=== PATIENT | male | born 1990 | race Caucasian/White ===

== ENCOUNTER 2016-08-29 10:45 | Inpatient (IN) | payer MEDICARE, MEDICAID ==
[2016-08-29 11:31] LABS: Hematocrit 42 % (42-52); Hemoglobin 14.4 g/dl (14.0-18.0); Mean Corpuscular HGB Conc 35 g/dl (31-36); Mean Corpuscular Hemoglobin 33 pg (27-31); Mean Corpuscular Volume 94 fL (80-94); Mean Platelet Volume 7 um3 (7.4-10.4); Red Blood Count 4.41 10^6/ul (4.0-5.4); Red Cell Distribution Width 13 % (10.5-15); White Blood Count 4.6 10^3/ul (3.5-10.8)
--- NOTE | 2016-08-29 11:46 | ED ---
Jamar Bustillos Alfonso, scribed for Daniel Vora MD on 08/29/16 at 1121 . Altered Mental Status - HPI Summary HPI Summary: This patient is a 25 year old male presenting with mother to [facility] for a "grand mal seizure" at 1000 today. He presented to [facility] for an outpatient EEG, and the seizure occurred in a [facility] elevator and lasted approximately 5 minutes. The clinical assessment team responded. Symptoms aggravated by nothing and alleviated by spontaneous resolution. He reports lightheadedness, metallic taste in mouth, and tunnel vision. He denies fevers and chills. Patient is taking medications for his seizures. PMHx of seizures. - History Of Current Complaint Chief Complaint: EDSeizure Stated Complaint: SEIZURE Time Seen by Provider: 08/29/16 10:50 Hx Obtained From: Patient, Family/Landscape Artist - Mother Onset/Duration: Resolved, Suddenly Timing: Constant, Lasting Minutes - 5 minutes Severity Initially: Moderate Severity Currently: Moderate Aggravating Factor(s): Nothing Alleviating Factor(s): Other - spontaneous resolution Associated Signs And Symptoms: Positive: Seizure - "grand mal seizure" at 1000 today.. Negative: Fever - Allergies/Home Medications Allergies/Adverse Reactions: Allergies Allergy/AdvReac Type Severity Reaction Status Date / Time Cortisone Allergy Severe Anaphylatic Verified 08/29/16 10:55 Shock Ibuprofen Allergy Severe Anaphylatic Verified 08/29/16 10:55 Shock PMH/Surg Hx/FS Hx/Imm Hx Opthamlomology History: Denies: Hx Legally Blind EENT History: Denies: Hx Deafness Infectious Disease History: No Infectious Disease History: Denies: Traveled Outside the [place] in Last 30 Days - Family History Known Family History: Positive: Seizure Disorder - Brother - Social History Alcohol Use: None Substance Use Type: Reports: None Smoking Status (MU): Never Smoked Tobacco Review of Systems Negative: Fever, Chills Neurological: Other - Positive seizure, lightheadedness, metallic taste in mouth , and tunnel vision. All Other Systems Reviewed And Are Negative: Yes Physical Exam Triage Information Reviewed: Yes Vital Signs On Initial Exam: Initial Vitals Temp Pulse Resp BP Pulse Ox 98.4 F 68 12 125/62 97 08/29/16 10:49 08/29/16 10:49 08/29/16 10:49 08/29/16 10:49 08/29/16 10:49 Vital Signs Reviewed: Yes Appearance: Positive: Well-Appearing, No Pain Distress Skin: Positive: Warm, Skin Color Reflects Adequate Perfusion, Dry Head/Face: Positive: Normal Head/Face Inspection Eyes: Positive: EOMI, AMANUEL ENT: Positive: Normal ENT inspection Neck: Positive: Supple, Nontender Respiratory/Lung Sounds: Positive: Clear to Auscultation, Breath Sounds Present Cardiovascular: Positive: RRR Abdomen Description: Positive: Nontender, Soft Bowel Sounds: Positive: Present Musculoskeletal: Positive: Normal, Strength/ROM Intact Neurological: Positive: Normal, Sensory/Motor Intact, Alert, Oriented to Person Place, Time, CN Intact II-III Psychiatric: Positive: Affect/Mood Appropriate Diagnostics - Vital Signs Vital Signs Temp Pulse Resp BP Pulse Ox 08/29/16 10:51 68 11 100 08/29/16 10:49 98.4 F 68 12 125/62 97 - Laboratory Lab Results: Lab Results 08/29/16 Range/Units 11:15 WBC 4.6 (3.5-10.8) 10^3/ul RBC 4.41 (4.0-5.4) 10^6/ul Hgb 14.4 (14.0-18.0) g/dl Hct 42 (42-52) % MCV 94 (80-94) fL MCH 33 H (27-31) pg MCHC 35 (31-36) g/dl RDW 13 (10.5-15) % Plt Count 131 L (150-450) 10^3/ul MPV 7 L (7.4-10.4) um3 Neut % (Auto) 71.5 (38-83) % Lymph % (Auto) 16.3 L (25-47) % Prairie % (Auto) 11.3 H (1-9) % Eos % (Auto) 0.5 (0-6) % Baso % (Auto) 0.4 (0-2) % Absolute Neuts (auto) 3.3 (1.5-7.7) 10^3/ul Absolute Lymphs (auto) 0.8 L (1.0-4.8) 10^3/ul Absolute Monos (auto) 0.5 (0-0.8) 10^3/ul Absolute Eos (auto) 0 (0-0.6) 10^3/ul Absolute Basos (auto) 0 (0-0.2) 10^3/ul Absolute Nucleated RBC 0 10^3/ul Nucleated RBC % 0 Result Diagrams: 08/29/16 11:15 Lab Statement: Any lab studies that have been ordered have been reviewed, and results considered in the medical decision making process. Altered Mental Statu Course/Dx - Course Course Of Treatment: NO CRITICAL CARE TIME. DISCUSSED WITH DR MARQUEZ, NEUROLOGY. ADMIT HOSPITALIST STABLE. - Diagnoses Discharge Diagnoses: Seizure - Provider Notifications Discussed Care Of Patient With: Remy Marquez Time Discussed With Above Provider: 10:48 Instructed by Provider To: Other - Consulted Dr. Marquez (neurologist) who was seeing the patient and recommends for admission. Consulted Dr. Rodríguez ( Hospitalist) at [facility] who agrees to admit. Discharge - Discharge Plan Condition: Stable Disposition: ADMITTED TO [facility] Referrals: Chad Oneil MD [Primary Care Provider] - The documentation as recorded by the Jamar hoover Alfonso accurately reflects the service I personally performed and the decisions made by me, Daniel Vora MD.
[2016-08-29 11:51] LABS: ALT 20 U/L (7-52); AST 15 U/L (13-39); Albumin 4.8 g/dL (3.2-5.2); Alkaline Phosphatase 79 U/L (34-104); Anion Gap 4 mmol/L (2-11); Blood Urea Nitrogen 11 mg/dL (6-24); C Reactive Protein 6.02 mg/L (< 5.00); CO2 Carbon Dioxide 24 mmol/L (22-32); Calcium 9.4 mg/dL (8.6-10.3); Chloride 97 mmol/L (101-111); Creatine Kinase 132 U/L (10-223); EGFR African American 117.1 (>60); Globulin 2.2 g/dL (2-4); Glucose 117 mg/dL (70-100); Lipase 18 U/L (11.0-82.0); Magnesium 1.9 mg/dL (1.9-2.7); Potassium 3.7 mmol/L (3.5-5.0); Sodium 125 mmol/L (133-145)
[2016-08-29] MEDS: NS 0.9% 1000 ML* 1,000 ML IV SCH ×3 (12:01→20:20)
[2016-08-29] MEDS ORDERED: Ondansetron INJ* 2 MG/ML VIAL IV PRN (12:08)
[2016-08-29] MEDS ORDERED: Rizatriptan 10 MG TAB PO PRN (12:10)
[2016-08-29 13:16] LABS: Acetaminophen < 15 mcg/mL; Alcohol < 10 mg/dL (<10); Salicylate < 2.50 mg/dL (<30)
[2016-08-29 13:26] LABS: TSH (Thyroid Stimulating Horm) 2.39 mcIU/mL (0.34-5.60)
[2016-08-29] MEDS: Acetaminophen TAB* 325 MG PO PRN ×3 (14:03→23:52)
[2016-08-29 16:33] LABS: Urine Bacteria Absent (Absent); Urine Bilirubin Negative (Negative); Urine Glucose Negative (Negative); Urine Nitrite Negative (Negative)
[2016-08-29 16:41] LABS: Benzodiazepine Urine Screen None Detected (None Detect)
[2016-08-29] MEDS ORDERED: Lacosamide TAB* 100 MG TAB PO SCH ×2 (18:00)
[2016-08-29 18:41] LABS: BUN/Creatinine Ratio 9.9 (8-20); Calcium 8.9 mg/dL (8.6-10.3); EGFR African American 130.6 (>60); EGFR Non-African American 101.5 (>60)
[2016-08-29] MEDS: Famotidine TAB* 20 MG PO SCH (21:13)
[2016-08-29] MEDS: Tamsulosin CAP* 0.4 MG PO SCH (21:13)
[2016-08-29] MEDS ORDERED: SUMAtriptan TAB* 50 MG PO PRN (21:28)
[2016-08-29] MEDS: OXcarbazepine TAB(*) 300 MG PO SCH (21:51)
[2016-08-30 00:33] LABS: BUN/Creatinine Ratio 7.7 (8-20); Calcium 9.1 mg/dL (8.6-10.3); EGFR African American 130.6 (>60); EGFR Non-African American 101.5 (>60); Potassium 4.1 mmol/L (3.5-5.0)
--- NOTE | 2016-08-30 01:34 | HP ---
AMENDED REPORT NOW INCLUDES COSIGNER DESIGNATION - ESIGNED BEFORE ADJUSTMENT CC: Dr. Oneil, [place], [place]; Dr. Marquez; Dr. Kaplan * HISTORY AND PHYSICAL: DATE OF ADMISSION: 08/29/16 PRIMARY CARE PROVIDER: Dr. Oneil, Martina, [place] CHIEF COMPLAINT: Seizure. ATTENDING PHYSICIAN FROM HOSPITAL: Anne Chauhan DO* (report dictated by Charbel Castillo NP). HISTORY OF PRESENT ILLNESS: Mr. Ruiz is a 25-year-old male patient who has a history of mitochondrial disease, seizures, migraines, GERD. He has a mild intellectual developmental delay, BPH. He has history of OCD, anxiety and colitis. Comes into the ER today stating that recently over the last 10 days he has been having, in mother's words, spells or episodes where he has been confused, not acting right, he has some increased respirations. She was concerned and actually they went to [facility], was admitted there, had a spot EEG, there was no finding. He was instructed to follow up with Dr. Marquez. He was following up with Dr. Marquez today for long-term EEG monitoring; however, unfortunately, on his way down to the EEG lab, he had a grand mal seizure in the elevator. CAT was called and patient was brought to the ER. The patient remembers prior to this that he was feeling just a little dizzy and lightheaded and the next thing he knows he was being wheeled to the ER. The mother did witness this and she said it did appear to be one of the grand mal seizures and the last one prior to this was about a year ago. She is unsure how long it really lasted. The patient now is awake and he is alert. He denies having any headache. He denies having any chest pain, shortness of breath. There has been no recent illnesses with the exception that he did have some mark esophagitis recently, which he was treated for a couple of weeks ago. There has been no fevers, no vomiting, no diarrhea, no change in medications. He says he has been taking his meds right along like he is supposed to. He came in to the ER, was evaluated, there was concern because of the seizures and the hospitalist service is asked to evaluate for admission. PAST MEDICAL HISTORY: 1. Seizures. 2. Migraines. 3. GERD. 4. BPH. 5. Mitochondrial disease. 6. Colitis. 7. Developmental delay, mild. 8. OCD. 9. Anxiety. PAST SURGICAL HISTORY: 1. He has had bilateral feet surgery. 2. Appendectomy. 3. Muscle biopsy. FAMILY HISTORY: His mother has history of an autoimmune disorder. Father's history is reviewed, noncontributory. SOCIAL HISTORY: He does not smoke, he does not drink. He lives with his parents. Surrogate decision maker is his mother. ALLERGIES: Include: 1. CORTISONE. 2. IBUPROFEN. HOME MEDICATIONS: According to the list they provided include, 1. Vimpat 100 mg in the morning, 200 mg at night. 2. Xanax 300 mg daily. 3. Vitamin D3 3000 units daily. 4. Maxalt 10 mg p.o. daily as needed for migraines. 5. Flomax 0.4 mg p.o. b.i.d. 6. Nexium 40 mg p.o. q.a.m. 7. Trileptal 600 mg p.o. b.i.d. REVIEW OF SYSTEMS: There is no documented fever. He denied having any significant weight change. There was no double vision. There is no ear discharge. He denied having any rhinorrhea. No sore throat, no thyroid enlargement. Denied having any chest pain. There was no orthopnea. No nocturnal dyspnea. There was no abdominal pain, no nausea, no vomiting. No dysuria, no frequency. There was a seizure, there was loss of consciousness. No pruritus and no skin ulcerations. Review of 14 systems completed, all others negative. PHYSICAL EXAMINATION GENERAL: At this time, Mr. Ruiz is a 25-year-old male patient. He is sitting in the ER stretcher. He appears well nourished, well developed. He does not appear to be in any acute distress. VITAL SIGNS: Reveals blood pressure 125/62, pulse 68, respirations 12, O2 sat 97% on room air, temperature 98.4. HEENT: Head atraumatic. Eyes: EOMs intact. Sclerae are anicteric. Throat: Oral mucosa appears moist. No oropharyngeal erythema. NECK: Supple. LUNGS: Clear to auscultation. No wheezes, rales or rhonchi. HEART: Sounds S1, S2. Regular rate and rhythm. No murmurs, rubs, or gallops. ABDOMEN: Soft, flat, nontender, bowel sounds present. EXTREMITIES: Pulses 2+ throughout. He is able to move all 4 extremities. He has 5/5 strength. NEUROLOGIC: The patient is awake. He is alert, he is oriented x3. His director of pulmonary unit are equal. Tongue is midline. Oqisuv-ki-dglp intact bilaterally. Heel-to- cristina intact bilaterally. He has no gross focal deficits. SKIN: Intact. DIAGNOSTIC STUDIES/LAB DATA: Labs reveal WBC of 4.6, RBC of 4.41, hemoglobin of 14.4, hematocrit of 43, platelet count of 131. Sodium 125, potassium 3.7, chloride of 97, bicarb 24, BUN of 11, creatinine of 1, glucose 117, lactic 1, calcium 9.4, mag 1.9. Total bili 0.5, AST 15, ALT 20, alk phos 79. CK 132, CK- MB 1.6, CRP of 6.02. Lipase 18, albumin 12.8. TSH pending. Toxicology pending. We did send off his Vimpat level and a Trileptal level, which will be pending. Old medical records were reviewed. ASSESSMENT AND PLAN: Mr. Ruiz is a 25-year-old male patient, coming into the ER today with complaints of seizure while going for long-term EEG monitoring. He will admitted under observation status for: 1. Seizure. At this point, I did touch base with Dr. Kaplan, who is on-call for Dr. Marquez. They did speak to each other. The plan is to go for long- term EEG monitoring in ICU. Depending on these findings, may consider further imaging. He had a recent CAT scan of the brain just done at [facility]. He was just there for a few days and with a spot EEG. I am going to get those records. I am not going to change his medications at this point. We are going to send off levels of his medications and we will continue to monitor him and I will order neuro checks every 4 hours. 2. Gastroesophageal reflux disease. Continue with meds prescribed. 3. Hyponatremia. The mother says that while in [place] his sodium did run between 125 to 127. I am going to send off urine osmolality, serum osmolality, TSH and cortisol to see if we can help figure out what is driving the hyponatremia. For the time being, we will monitor. He did get a liter in the ER here. I am going to repeat his sodium here about every 6 hours and we will monitor. 4. Migraines. Continue p.r.n. Maxalt. 5. Benign prostatic hyperplasia. Continue Flomax. 6. Mitochondrial disease. He follows with primary. 7. History of colitis. At this point, continue his current medical regimen. 8. Developmental delay. Continue with supportive care. 9. Obsessive-compulsive disorder, anxiety. Continue with supportive care and current meds. 10. DVT prophylaxis: I will place him on SCDs. 11. Fluids and nutrition: He can have a regular diet. 12. Code status: Full code. TIME SPENT: Time spent on admission was 60 minutes, greater than half the time spent [id number] with the patient obtaining history and physical; other half time spent going over the plan of care, with the patient, implementing plan of care. I discussed the plan of care with my attending, Dr. Chauhan, she is in agreement. CHARBEL CASTILLO, PHILL [id number]/[facility] #: [id number] GREGORY
--- NOTE | 2016-08-30 02:23 | CONS ---
CONSULTATION REPORT: DATE OF CONSULT: 08/29/2016. PATIENT OF: Dr. Vora and Dr. Marquez. HISTORY OF PRESENT ILLNESS: This is a 25-year-old man whom I follow for seizure disorder and mitochondrial disease, who is in my office today and I am sending for a prolonged EEG. In the elevator, he had a generalized tonic- clonic seizure lasting 5 minutes. I was called and I brought him, at that point he was talking but subdued, in his wheelchair and I brought him to the emergency room. He was able to stand and get to the gurney under his own power and I examined as well. He has a longstanding seizure disorder and is on Vimpat 100 mg twice a day and on Trileptal 600 twice a day as well as Klonopin one t.i.d. p.r.n. dizziness and anxiety. He also has migraine and is on rizatriptan and on Flomax 0.4 mg twice a day. He had been on Keppra in the past breakthrough seizures, and in the past, the seizures lasted as long as 8 minutes with tonic-clonic component. Most recently, I had seen him on 08/13/16 and he had doing well and had made no changes, but the within 4 or 5 days, he woke up with lightheaded, dizzy, off balance, feeling a metallic taste in his mouth, and this had persisted for an ongoing basis, so he was admitted to [place] from 08/24/16 through 08/27/16. I did not have those records, but he had a normal EEG and CT scan, no changes were made at that hospitalization. Of note, we had sent off blood work recently and his Trileptal level was 23 and his Vimpat level was 5. He has had extensive workup for mitochondrial disease at last in [place] and with different experts coming to different conclusions, but most recently, the doctor that feels that this mitochondrial genetic abnormalities represent a variant, is unlikely to be causing pathological findings. ALLERGIES: Include MOTRIN and HYDROCORTISONE. FAMILY HISTORY: He has a brother who has seizures and similar mitochondrial issues. SOCIAL HISTORY: He denies substance abuse. REVIEW OF SYSTEMS: Negative in all 14 spheres other than the HPI. PHYSICAL EXAM: Temperature 98.4, pulse 68, respirations 12, blood pressure 125/ 62. I examined him twice. He was alert and oriented throughout before and after the seizure. Cranial nerves II through XII are intact. He reached for objects, slightly clumsily before and after and this is his baseline. I tested his standing after seizure but did not walk him before the seizure, he had a narrow-based gait. He is moving all extremities with 5/5 strength before and after the seizure. Chest: Clear. Cardiovascular: Regular rate and rhythm. Abdomen: Soft. Positive bowel sounds. LABORATORY DATA: CBC had a white count of 4.6, hematocrit 42, platelets 131. Sodium was 125, rest of CMP was normal other than glucose of 117. C-reactive protein is 602. Tox screen was negative. IMPRESSION AND PLAN: I had discussed this with Dr. Darling the best EEG workup and we had been planning on getting a prolonged EEG today to get a sense of whether his ongoing symptoms of dizziness, metallic taste, imbalance, and tunnel vision were related to seizures. It is possible that if the case, it is possible that it could be secondary to medication side effect or lastly it is possible if this could be a stress or psychological issue even though he felt unsure of himself as walking appeared normal. In the setting of the recent seizure in the ER, makes more sense to admit him and he will be getting a video EEG monitoring. I have discussed this with Dr. Kaplan, who is picking up this case and will be following him this weekend as well as Dr. Darling. I would consider decreasing his anticonvulsant levels depending on the result of his more prolonged EEG, but this is a tricky situation. We could conceivably increase his Vimpat while decreasing his Trileptal, but Dr. Kaplan is provider relations manager and will be reacting to what happens over the next day or two. Thank you for sharing his case. [id number]/[facility] #: [id number] GREGORY
[2016-08-30] MEDS: NS 0.9% 1000 ML* 1,000 ML IV SCH (03:00)
[2016-08-30] MEDS ORDERED: LORazepam INJ* 2 MG/ML 1 ML VIAL IV PUSH PRN ×2 (04:19→09:28)
[2016-08-30 05:18] LABS: Hematocrit 40 % (42-52); Hemoglobin 13.6 g/dl (14.0-18.0); Mean Corpuscular HGB Conc 34 g/dl (31-36); Mean Corpuscular Hemoglobin 33 pg (27-31); Mean Corpuscular Volume 95 fL (80-94); Mean Platelet Volume 7 um3 (7.4-10.4); Red Blood Count 4.18 10^6/ul (4.0-5.4); Red Cell Distribution Width 13 % (10.5-15); White Blood Count 3.8 10^3/ul (3.5-10.8)
[2016-08-30 05:33] LABS: BUN/Creatinine Ratio 5.4 (8-20); Calcium 8.9 mg/dL (8.6-10.3); EGFR African American 128.9 (>60); EGFR Non-African American 100.2 (>60)
--- NOTE | 2016-08-30 08:33 | CONS ---
Neurology follow up note: SUMMARY: Patient signed out to me by Dr. Marquez. In summary, he is a 25-year- old right-handed male with history of epilepsy since age 4. He has been on several antiepileptic medications and his seizures have been refractory. His seizures, per history, are 2 types: Type A: dialeptic seizures that used to happen probably a few times a week when he was at school; however, since he has been off school, as per mother it is hard to say how often he is having them. Type B: Generalized tonic- clonic seizures. He typically did not have a history of auras with these and suddenly he loses consciousness followed by tonic posture with no clear lateralizing sign, and the proceeds to a generalized tonic-clonic seizure. The frequency of his seizures have not been very high with probably 1 seizure a year or less. Since about 10 days ago, the patient started to complain of episodes described as feeling dark in the vision , and also feeling of what he refers to has "hollow sounds" and metallic taste in his mouth. He had several of these episodes since about 10 days ago. He went to a local hospital during last weekend and was sent to [facility] and stayed there for a few days and was released. He saw Dr. Marquez today who wanted to send him for a few hours of EEG recording and while in the elevator he had one of his typical generalized tonic-clonic seizures. This seizure lasted about 4 to 5 minutes. He was then admitted to the hospital for video EEG monitoring. MEDICATIONS: Include at home: 1. Vimpat 100 mg b.i.d. He was on 100 mg in the morning and 200 mg at night about a few months ago, but that was decreased due to dizziness. 2. Zantac. 3. Vitamin D. 4. Oxcarbazepine 600 mg p.o. b.i.d. 5. Nexium. Per the records from Dr. Marquez's office his Vimpat level that was drawn about a week ago was 5 and Trileptal 23. ASSESSMENT AND PLAN: Patient is a 25-year-old right-handed male with history of medically refractory epilepsy, came with a breakthrough seizure and 10 days history of what seems to be episodes of aura described as feeling dark in the vision, and also feeling of what he refers to has "hollow sounds" and metallic taste in his mouth. He was placed on video EEG monitoring to characterize these episodes. For the time being no change in his medications will be made. Depending on the EEG findings, may adjust his antiepileptic medications in the subsequent days. [id number]/[facility] #: [id number] GREGORY
[2016-08-30] MEDS: OXcarbazepine TAB(*) 300 MG PO SCH ×2 (08:52→21:27)
[2016-08-30] MEDS: Omeprazole CAP* 20 MG PO SCH (08:52)
[2016-08-30] MEDS: Tamsulosin CAP* 0.4 MG PO SCH ×2 (08:52→21:29)
[2016-08-30] MEDS: Lacosamide TAB* 100 MG TAB PO SCH (08:52)
--- NOTE | 2016-08-30 09:19 | PN ---
Subjective Date of Service: 08/30/16 Interval History: Patient seen this morning. Had some episodes of light-headedness overnight which has been going on recently, wondering if this may related to seizure activity. Some neck pain since seizure. Mother at bedside as well this morning. Family History: Unchanged from Admission Social History: Unchanged from Admission Past Medical History: Unchanged from Admission Objective Active Medications: Acetaminophen (Tylenol Tab*) 650 mg PO Q4H PRN Famotidine (Pepcid Tab*) 40 mg PO BEDTIME CAYETANO Sodium Chloride (Ns 0.9% 1000 Ml*) 1,000 mls @ 150 mls/hr IV PER RATE CAYETANO Lacosamide (Vimpat Tab*) 100 mg PO QAM CAYETANO Lacosamide (Vimpat Tab*) 100 mg PO QPM CAYETANO Lorazepam (Ativan Inj*) 1 mg IV PUSH Q6H PRN Omeprazole (Prilosec Cap*) 20 mg PO DAILY@0730 CAYETANO Ondansetron HCl (Zofran Inj*) 4 mg IV Q6H PRN Oxcarbazepine (Trileptal Tab(*)) 600 mg PO BID CAYETANO Rizatriptan Benzoate (Maxalt-Philanthropy Officer (Nf)) 10 mg PO DAILY PRN Sumatriptan Succinate (Imitrex Tab*) 50 mg PO DAILY PRN Tamsulosin HCl (Flomax Cap*) 0.4 mg PO BID CAYETANO Vital Signs 08/29/16 08/29/16 08/29/16 12:30 13:00 13:35 Temperature 97.4 F Pulse Rate 78 72 72 Respiratory 14 12 18 Rate Blood Pressure 115/53 116/59 116/59 (mmHg) O2 Sat by Pulse 98 97 98 Oximetry 08/29/16 08/29/16 08/29/16 17:30 18:00 19:00 Temperature Pulse Rate 68 71 76 Respiratory 18 15 17 Rate Blood Pressure 121/63 (mmHg) O2 Sat by Pulse 99 100 98 Oximetry 08/30/16 08/30/16 08:00 09:00 Temperature Pulse Rate 61 76 Respiratory 11 15 Rate Blood Pressure 102/53 106/86 (mmHg) O2 Sat by Pulse 99 100 Oximetry Oxygen Devices in Use Now: None Appearance: Young, M, laying in bed in NAD Eyes: No Scleral Icterus Ears/Nose/Mouth/Throat: Mucous Membranes Moist Neck: NL Appearance and Movements; NL JVP Respiratory: Symmetrical Chest Expansion and Respiratory Effort, Clear to Auscultation Cardiovascular: NL Sounds; No Murmurs; No JVD, RRR Abdominal: NL Sounds; No Tenderness; No Distention Lymphatic: No Cervical Adenopathy Extremities: No Edema Skin: No Rash or Ulcers Neurological: Alert and Oriented x 3 Result Diagrams: 08/30/16 05:11 08/30/16 05:11 Microbiology and Other Data: Microbiology 08/29/16 14:00 Nasal Screen MRSA (PCR)(RAMSES) - Final Nasal Mrsa Negative Assess/Plan/Problems-Billing Assessment: Seizure in a 25 yo M with hx of mitochondrial disease, migraines, GERD, developmental delay, OCD/anxiety - Patient Problems (1) Seizure Current Visit: Yes Comment: Appreciate Neurology assistance. Currently on cEEG. For now, continuing home dose of Vimpat 100 mg BID and Trileptal 600 mg BID. Will touch base with Neuro regarding EEG findings. (2) Hyponatremia Current Visit: Yes Comment: Na improving with IVF although initial Peter was elevated, may be some component of SIADH as well. Will recheck Peter now. Stop IVF as he is eating and drinking. (3) GERD (gastroesophageal reflux disease) Current Visit: Yes Comment: Continue H2 thelma (4) BPH (benign prostatic hyperplasia) Current Visit: Yes Comment: Continue flomax (5) DVT prophylaxis Current Visit: Yes Comment: SCDs
--- NOTE | 2016-08-30 11:43 | EEG ---
SENIOR CARE VIDEO/EEG MONITORING - Monitoring Monitoring Start Date: 08/29/16 - Starting at 14:30 to 08/30/16 at 07:58 EEG Clinical Indication: 25-year-old male with history of localization related epilepsy, intractable, was under fair control of his seizures on Vimpat and Oxcarbazepine until about a week ago. Since then, he is having episodes described as feeling lightheaded, sometimes feeling a metallic taste in the mouth, followed by "hearing hollow" sounds, that may last for a couple of minutes. The patient had a generalized tonic clonic seizure on 08/29/16 while he was coming to the hospital for another EEG recording. He was started on video-EEG monitoring for characterization of these events. Introduction: INTRODUCTION: The EEG was monitored from 21 scalp electrodes. Nineteen electrodes consisted of the standard parasagittal, temporal and midline leads of the International 10 -20 system. In addition, special electrodes FT9 and FT10 were placed. EEG data were recorded on an [employer] system with simultaneous MPEG-4 digital video recording of patient behavior. EEG recording was in a monopolar montage with all electrodes referenced to FCz. Significant behavioral events were signaled by an event button, or putative electrical seizure events were detected by a computer program. All EEG data were reviewed in their entirety on a monitor with reconstruction of montages and adjustments of sensitivity and filtering. Simultaneous patient behavior was viewed on an adjacent monitor and correlated with the EEG. - Medications Active Medications: Acetaminophen (Tylenol Tab*) 650 mg PO Q4H PRN PRN Reason: FEVER/PAIN Last Admin: 08/29/16 23:52 Dose: 650 mg Famotidine (Pepcid Tab*) 40 mg PO BEDTIME [facility] PRN Reason: Protocol Last Admin: 08/29/16 21:13 Dose: 40 mg Lacosamide (Vimpat Tab*) 100 mg PO QAM [facility] Last Admin: 08/30/16 08:52 Dose: 100 mg Lacosamide (Vimpat Tab*) 100 mg PO QPM [facility] Last Admin: 08/29/16 18:34 Dose: 100 mg Lorazepam (Ativan Inj*) 1 mg IV PUSH Q6H PRN PRN Reason: ANXIETY Last Admin: 08/30/16 04:49 Dose: 1 mg Lorazepam (Ativan Inj*) 2 mg IV PUSH Q4H PRN PRN Reason: SEIZURES Omeprazole (Prilosec Cap*) 20 mg PO DAILY@0730 [facility] PRN Reason: Protocol Last Admin: 08/30/16 08:52 Dose: 20 mg Ondansetron HCl (Zofran Inj*) 4 mg IV Q6H PRN PRN Reason: NAUSEA Oxcarbazepine (Trileptal Tab(*)) 600 mg PO BID [facility] Last Admin: 08/30/16 08:52 Dose: 600 mg Rizatriptan Benzoate (Maxalt-Leaded Glass Installer (Nf)) 10 mg PO DAILY PRN PRN Reason: MIGRAINE HEADACHE Sumatriptan Succinate (Imitrex Tab*) 50 mg PO DAILY PRN PRN Reason: MIGRAINE HEADACHE Last Admin: 08/29/16 21:49 Dose: 50 mg Tamsulosin HCl (Flomax Cap*) 0.4 mg PO BID [facility] Last Admin: 08/30/16 08:52 Dose: 0.4 mg - Description Background: The waking background showed appropriate organization with clearly defined anterior-posterior voltage and frequency gradients. There was a defined posterior dominant rhythm of 8.5-9.5 Hertz, which was symmetrical and showed normal reactivity. Anteriorly, there was the expected pattern of lower voltage and more irregular theta and beta rhythms. The sleep background was appropriately organized with well-developed spindles and vertex waves indicative of stage 2 sleep. These sleep transients showed appropriate morphology and were bilaterally synchronous and symmetrical. Development of diffuse delta range frequencies with dropout of stage 2 architecture accompanied transition to slow wave sleep. The patient did not achieve deeper sleep stages or REM sleep. No epileptiform abnormalities were recorded. Intericatal Epileptiform Activity: None Ictal Activity: The patient had several push buttons at 22:05 on 08/29/16 and then at 00:45, 02: 22, 02:57, 03:35, 03:55, 04:15 and 04:43 on 08/30/16. He described those episodes of being lightheaded and maybe one of them associated with a metallic taste in the mouth. None of these episodes were associated with any change in the background EEG recording. The patient's mother described this as a very mild version of his recent typical events, but no events associated with deep breathing or stronger symptoms. - Impression Impression: This video-EEG from 08/29/16 at 14:30 to 08/30/16 at 07:58 is normal. Several episodes of reported light-headedness were captured, one of them associated with a metallic taste in the mouth, that had no EEG correlation. Video-EEG recording continues.
--- NOTE | 2016-08-30 12:03 | PN ---
Progress Note - Progress Note Date of Service: 08/30/16 SOAP: Neurology progress note Date of service: 08/30/16 Subjective: Patient was started on video-EEG monitoring yesterday afternoon. He did not go to sleep until about after 4am. He was anxious and per his mother, he usually can stay anxious for a day or so after his seizures. He did push the EEG event button about 8 time until about 8am today. He described having episodes of feeling lightheaded, and one time a metallic taste in the mouth, but none of his full blown episodes of supposedly aura. He has also some pain the muscles in the back of his neck, after his seizure yesterday. Objective: Vital Signs Temp Pulse Resp BP Pulse Ox 98.2 F 80 14 134/73 99 08/30/16 11:59 08/30/16 10:00 08/30/16 10:00 08/30/16 10:00 08/30/16 10:00 Current Medications Acetaminophen (Tylenol Tab*) 650 mg PO Q4H PRN PRN Reason: FEVER/PAIN Last Admin: 08/29/16 23:52 Dose: 650 mg Famotidine (Pepcid Tab*) 40 mg PO BEDTIME [facility] PRN Reason: Protocol Last Admin: 08/29/16 21:13 Dose: 40 mg Lacosamide (Vimpat Tab*) 100 mg PO QAM [facility] Last Admin: 08/30/16 08:52 Dose: 100 mg Lacosamide (Vimpat Tab*) 100 mg PO QPM [facility] Last Admin: 08/29/16 18:34 Dose: 100 mg Lorazepam (Ativan Inj*) 1 mg IV PUSH Q6H PRN PRN Reason: ANXIETY Last Admin: 08/30/16 04:49 Dose: 1 mg Lorazepam (Ativan Inj*) 2 mg IV PUSH Q4H PRN PRN Reason: SEIZURES Omeprazole (Prilosec Cap*) 20 mg PO DAILY@0730 [facility] PRN Reason: Protocol Last Admin: 08/30/16 08:52 Dose: 20 mg Ondansetron HCl (Zofran Inj*) 4 mg IV Q6H PRN PRN Reason: NAUSEA Oxcarbazepine (Trileptal Tab(*)) 600 mg PO BID [facility] Last Admin: 08/30/16 08:52 Dose: 600 mg Rizatriptan Benzoate (Maxalt-Drill Foreman (Nf)) 10 mg PO DAILY PRN PRN Reason: MIGRAINE HEADACHE Sumatriptan Succinate (Imitrex Tab*) 50 mg PO DAILY PRN PRN Reason: MIGRAINE HEADACHE Last Admin: 08/29/16 21:49 Dose: 50 mg Tamsulosin HCl (Flomax Cap*) 0.4 mg PO BID [facility] Last Admin: 08/30/16 08:52 Dose: 0.4 mg Exam unchanged compared to yesterday. Pupils are symmteric and reactive to light. Face symmetric. Motor 5/5. Finger to nose intact bilaterally. He has some tenderness in the back of his neck muscle. Assessment and Plan: 25-year-old male with history of medically refractory epilepsy, on video-EEG monitoring for characterization of his episodes of lightheadedness as described above. Continue Video-EEG monitoring to capture the full blown episodes. Continue the current meds of Vimpat at 100 mg bid and Oxcarbazepine at 600 mg bid. Continue tylenol and maybe a very low dose muscle relaxant for his pain neck.
[2016-08-30] MEDS ORDERED: Cyclobenzaprine TAB* 10 MG PO PRN (13:46)
[2016-08-30] MEDS ORDERED: Lacosamide TAB* 100 MG TAB PO SCH (21:00)
[2016-08-30] MEDS ORDERED: CMCS Melatonin (NF) 3 MG TAB PO SCH (21:00)
[2016-08-30] MEDS: Famotidine TAB* 20 MG PO SCH (21:25)
[2016-08-31 01:11] LABS: Lacosamide 5.6 mcg/mL (1.0 - 10.0)
[2016-08-31 06:27] LABS: Calcium 9.3 mg/dL (8.6-10.3); EGFR African American 117.1 (>60); Potassium 3.8 mmol/L (3.5-5.0)
[2016-08-31] MEDS: Omeprazole CAP* 20 MG PO SCH (08:54)
[2016-08-31] MEDS: Lacosamide TAB* 100 MG TAB PO SCH (08:54)
[2016-08-31] MEDS: OXcarbazepine TAB(*) 300 MG PO SCH (08:54)
[2016-08-31] MEDS: Tamsulosin CAP* 0.4 MG PO SCH (08:54)
--- NOTE | 2016-08-31 10:59 | PN ---
Progress Note - Progress Note Date of Service: 08/31/16 SOAP: Neurology progress note Date of service 08/31/16 Subjective: Patient had no events since yesterday morning, more than 24 hours now. He had a good sleep last night and feeling well and refreshed this morning. Level of his anxiety has also been on the lower side. Also, feels the pain in the back of his neck has been better. Review of his EEG so far did not show any abnormalities so far, including during the episodes with feeling lightheaded. Objective: Vital Signs Temp Pulse Resp BP Pulse Ox 98.4 F 59 14 104/63 97 08/31/16 07:41 08/31/16 05:00 08/31/16 05:50 08/31/16 05:00 08/31/16 08:08 Laboratory Results - last 24 hr 08/29/16 08/29/16 08/31/16 11:15 16:00 05:41 Sodium 132 L Potassium 3.8 Chloride 101 Carbon Dioxide 23 Anion Gap 8 BUN 10 Creatinine 1.00 Est GFR ( Amer) 117.1 Est GFR (Non-Af Amer) 91.0 BUN/Creatinine Ratio 10.0 Glucose 83 Calcium 9.3 Urine Osmolality 683 Oxcarbazepine Metabol 30 Lacosamide Level 5.6 Current Medications Acetaminophen (Tylenol Tab*) 650 mg PO Q4H PRN PRN Reason: FEVER/PAIN Last Admin: 08/29/16 23:52 Dose: 650 mg Cyclobenzaprine HCl (Flexeril Tab*) 2.5 mg PO TID PRN PRN Reason: PAIN Last Admin: 08/30/16 21:29 Dose: 2.5 mg Famotidine (Pepcid Tab*) 40 mg PO BEDTIME [facility] PRN Reason: Protocol Last Admin: 08/30/16 21:25 Dose: 40 mg Lacosamide (Vimpat Tab*) 100 mg PO QAM [facility] Last Admin: 08/31/16 08:54 Dose: 100 mg Lacosamide (Vimpat Tab*) 100 mg PO 2100 [facility] Last Admin: 08/30/16 21:26 Dose: 100 mg Lorazepam (Ativan Inj*) 1 mg IV PUSH Q6H PRN PRN Reason: ANXIETY Last Admin: 08/30/16 04:49 Dose: 1 mg Lorazepam (Ativan Inj*) 2 mg IV PUSH Q4H PRN PRN Reason: SEIZURES Melatonin (Melatonin (Nf)) 3 mg PO BEDTIME [facility] Last Admin: 08/30/16 21:26 Dose: 3 mg Omeprazole (Prilosec Cap*) 20 mg PO DAILY@0730 [facility] PRN Reason: Protocol Last Admin: 08/31/16 08:54 Dose: 20 mg Ondansetron HCl (Zofran Inj*) 4 mg IV Q6H PRN PRN Reason: NAUSEA Oxcarbazepine (Trileptal Tab(*)) 600 mg PO BID [facility] Last Admin: 08/31/16 08:54 Dose: 600 mg Rizatriptan Benzoate (Maxalt-Research Laboratory Manager (Nf)) 10 mg PO DAILY PRN PRN Reason: MIGRAINE HEADACHE Sumatriptan Succinate (Imitrex Tab*) 50 mg PO DAILY PRN PRN Reason: MIGRAINE HEADACHE Last Admin: 08/29/16 21:49 Dose: 50 mg Tamsulosin HCl (Flomax Cap*) 0.4 mg PO BID [facility] Last Admin: 08/31/16 08:54 Dose: 0.4 mg Neurological exam stable and unchanged compared to the time of admission: alert , oriented x 3, pupils symmetric and reactive, good strength in extremities Assessment & Plan: 25-year-old male with medically refractory epilepsy, admitted for characterization of his paroxysmal events that he has been experiencing in the past 10 days. He had a GTC seizure on Thursday. During monitoring had a few episodes of lightheadedness and metallic taste in the mouth, none of them associated with a change in the background EEG recording. Interictal EEG was also unremarkable. The patient`s sodium increased from 125 at the time of admission to 132 today. Whether this was playing a role in triggering some of his symptoms remain a possibility. He is in Oxcarbazepine which can cause hyponatremia, but also I suspect a component of hypovolemic hyponatremia was contributing to bring his sodium even lower. Today, the patient admitted that he does not keep himself hydrated and does not drink enough fluids. He drinks a few cups of coffee a day. It was suggested that he limits his coffee intake to not more than 1 cup a day, and keep himself hydrated with water, green tea or similar beverages, especially during the upcoming hot months of summer. As the patient remains stable, and did not have any episodes in the past 24 hours, and his EEG was normal, plan is to discharge him home today with no change in his AEDs. He will get another sodium level drawn on Sunday 09/03 at a local lab. Since he is stable now, I don`t see a compelling reason to repeat his imaging of brain at this point. He will follow with Dr. Marquez as outpatient. If his episodes recur, he might benefit from a 2 to 3 days of ambulatory EEG. Time spent at bedside at least 25 minutes discussing the plan above.
--- NOTE | 2016-08-31 11:10 | DCNOTE ---
Patient seen this morning. Feeling better, no events on EEG. Still with some neck muscle discomfort. Mother notes he has been a bit slow to respond to some things yesterday, explained this may still be residual effects from seizure. On exam, RRR, s1 and s2 present, no m/g/r, abd soft, NTND, BS+, lungs CTA B/L, no w/r/r Appreciate Neuro assistance. D/C with no change in seizure meds. Maintain hydration to keep Na up, recheck BMP on 09/03. Will discharge with a few doses of flexeril. F/U with Dr. Marquez.
[2016-08-31] MEDS: Acetaminophen TAB* 325 MG PO PRN (11:55)
[2016-08-31 12:18] VITALS: BP 128/63
--- NOTE | 2016-08-31 21:50 | EEG ---
[facility] VIDEO/EEG MONITORING - Monitoring Monitoring Start Date: 08/29/16 - , this report is day#2 of the recording starting from 08/30/16 at 07:59 to 08/31/16 at 11:16 EEG Clinical Indication: 25-year-old male with history of localization related epilepsy, intractable, was under fair control of his seizures on Vimpat and Oxcarbazepine until about a week ago. Since then, he is having episodes described as feeling lightheaded, sometimes feeling a metallic taste in the mouth, followed by "hearing hollow" sounds, that may last for a couple of minutes. The patient had a generalized tonic clonic seizure on 08/29/16 while he was coming to the hospital for another EEG recording. He was started on video-EEG monitoring for characterization of these events. Introduction: INTRODUCTION: The EEG was monitored from 21 scalp electrodes. Nineteen electrodes consisted of the standard parasagittal, temporal and midline leads of the International 10 -20 system. In addition, special electrodes FT9 and FT10 were placed. EEG data were recorded on an [employer] system with simultaneous MPEG-4 digital video recording of patient behavior. EEG recording was in a monopolar montage with all electrodes referenced to FCz. Significant behavioral events were signaled by an event button, or putative electrical seizure events were detected by a computer program. All EEG data were reviewed in their entirety on a monitor with reconstruction of montages and adjustments of sensitivity and filtering. Simultaneous patient behavior was viewed on an adjacent monitor and correlated with the EEG. - Description Background: The waking background showed appropriate organization with clearly defined anterior-posterior voltage and frequency gradients. There was a defined posterior dominant rhythm of 8.5-9.5 Hertz, which was symmetrical and showed normal reactivity. Anteriorly, there was the expected pattern of lower voltage and more irregular theta and beta rhythms. The sleep background was appropriately organized with well-developed spindles and vertex waves indicative of stage 2 sleep. These sleep transients showed appropriate morphology and were bilaterally synchronous and symmetrical. Development of diffuse delta range frequencies with dropout of stage 2 architecture accompanied transition to slow wave sleep, and a lower voltage mixed frequency pattern associated with eye movements was consistent with REM sleep. No epileptiform abnormalities were recorded. Intericatal Epileptiform Activity: None Ictal Activity: The patient pushed the event button button twice at 10:19 and 10:42 on 08/31/16 as he felt lightheaded. None of these episodes were associated with any change in the background EEG recording - Impression Impression: This day #2 of the video-EEG recording from 08/30/16 at 07:59 to 08/31/16 at 11:16 is normal. Two episodes of reported light-headedness were captured, with no EEG correlation. Final Impression: This video-EEG for 45 hours over 3 days from 08/29/16 at 14:30 to 08/31/16 at 11: 16 is normal. During this entire recording, the patient had several episodes manifesting as light-headedness, and at times with metallic taste in the mouth. None of these episodes were associated with a change in the background EEG recording. No epileptiform discharges or seizures were seen.
--- NOTE | 2016-09-01 11:49 | DS ---
CC: Dr. Oneil; Dr. Remy Marquez, Neurology* DISCHARGE SUMMARY: DATE OF ADMISSION: 08/29/16 DATE OF DISCHARGE: 08/31/16 PRIMARY CARE PHYSICIAN: Dr. Oneil in [place], [place]. PRINCIPAL DISCHARGE DIAGNOSIS: Seizure. SECONDARY DIAGNOSES: 1. Migraine. 2. Benign prostatic hyperplasia. 3. Mitochondrial disease. 4. Colitis. 5. Developmental delay. 6. Anxiety. DISCHARGE MEDICATION REGIMEN: 1. Vimpat 100 mg by mouth 2 times daily. 2. Ranitidine 300 mg by mouth at bedtime. 3. Vitamin D3 1000 units by mouth daily. 4. Rizatriptan 10 mg by mouth daily as needed for migraines. 5. Flomax 0.4 mg by mouth 2 times daily. 6. Esomeprazole 40 mg by mouth daily. 7. Trileptal 600 mg by mouth 2 times daily. 8. Flexeril 2.5 mg by mouth 2 times daily as needed for pain. STUDIES DONE DURING HOSPITALIZATION: Video EEG, impression: This video EEG from 08/29/16 at 1430 through 08/30/16 at 7:58 is normal. Several episodes were reported, lightheadedness were captured. None of them associated with any EEG correlation and the remainder of the EEG monitoring report is pending. HISTORY OF PRESENT ILLNESS AND HOSPITAL SUMMARY: Please see the full history and physical by Charbel Castillo NP, for full detail. Briefly, Mr. Ruiz is a 25-year- old man with past medical history as above, who presented to the hospital after he had a tonic-clonic seizure in the hallway while on his way to Neurology appointment. The patient was brought to the ER, was evaluated by Dr. Kaplan. He was noted to have low sodium on admission of 125. The patient had recently been seen at [facility] in [place] for symptoms of lightheadedness and some metallic taste in his mouth. There was concern that these be possible seizures. Apparently, an EEG that was negative as well as imaging of the brain. It was felt that his sodium, which was low during that admission as well may have been contributing to his symptoms. The patient was brought to the ICU for continuous EEG monitoring. He had a number of episodes of lightheadedness and one associated with metallic taste in his mouth, but these were not associated with any epileptic activity. The patient's medications were not changed. He did have a low sodium here in the hospital, which was thought to be due to combination of low p.o. intake and dehydration as well as some contribution from this Trileptal. The patient was given IV fluids with improvement in his sodium to 132 on the day of discharge. The patient will be discharged home with no change in his seizure medications. We will repeat a BMP in the middle of this upcoming week to ensure his sodium is stable. The patient was encouraged to stay hydrated. He will follow up as an outpatient with his PCP as well as with Dr. Marquez. TIME SPENT: Total time spent on this discharge 35 minutes. This is a summary of the hospitalization. Please see the full medical record for further details. [id number]/[facility] #: [id number] MTDD
== END 2016-08-31 12:30 | disposition home or self-care (01) | DRG 101 ==
LOC: ED 10:45 → ICU 12:03 → OBSVTOIN 08-30 15:42
PROVIDERS: ADMIT Hospitalist; ATTEND Hospitalist
DX: G40.409 Other generalized epilepsy and epileptic syndromes, not intractable, without status epilepticus (principal); E88.40 Mitochondrial metabolism disorder, unspecified; E87.1 Hypo-osmolality and hyponatremia; G43.909 Migraine, unspecified, not intractable, without status migrainosus; D29.1 Benign neoplasm of prostate; K52.9 Noninfective gastroenteritis and colitis, unspecified; F41.9 Anxiety disorder, unspecified; F81.9 Developmental disorder of scholastic skills, unspecified; F42.9 Obsessive-compulsive disorder, unspecified; Z84.89 Family history of other specified conditions; Z88.6 Allergy status to analgesic agent; Z88.8 Allergy status to other drugs, medicaments and biological substances; Z79.899 Other long term (current) drug therapy
CPT/HCPCS: 36415; 80048; 80053; 80183; 80299; 80307; 80320; 80329; 81003; 81015; 82533; 82550; 82553; 82570; 83605; 83690; 83735; 83935; 84300; 84443; 85025; 85610; 85730; 86140; 87086; 87641; 95951; A9270-GY; G0378; G0480; J2060